=== PATIENT | female | born 1955 | race African-American/Black ===

== ENCOUNTER 2017-08-15 08:01 | Day surgery (SDC) | payer BC ==
[~2017-08-15 08:01] MED LIST: PROPOFOL INJ 200 MG/20 ML VIAL IV ONE
[2017-08-15 09:19] VITALS: BP 145/81
--- NOTE | 2017-08-15 14:38 | Operative Report ---
Operative Report DATE OF SURGERY: 08/15/17 Operative Report: The risks, benefits and alternatives of the procedure including risks of bleeding, perforation requiring surgery are explained to the patient in detail and informed consent is obtained the patient is taken back to the endoscopy unit and placed in a left lateral decubital position. Timeout was called. Propofol medications administered. A rectal examination is done which did not reveal any masses, tears or fissures. An Olympus endoscope is inserted into the patient's rectum. The scope was then advanced over the way to the cecum. The cecum was identified by the usual anatomical landmarks including the ileocecal valve as well as the appendiceal office. Prep is good. Photo documentation was obtained. The scope was then sequentially pulled back via the various segments of the colon including the ascending colon, hepatic flexure, transverse colon, splenic flexure, descending colon and finally into the rectosigmoid portions of the colon. Retroflexion maneuver is performed. PREOPERATIVE DIAGNOSIS: Personal history of colon polyp POSTOPERATIVE DIAGNOSIS: Colon polyp status post removal with snare polypectomy. Internal hemorrhoid OPERATION: Colonoscopy with snare polypectomy SURGEON: GONZÁLEZ BARRIENTOS ANESTHESIA: LMAC TISSUE REMOVED OR ALTERED: As noted above. COMPLICATIONS: None. ESTIMATED BLOOD LOSS: None. INTRAOPERATIVE FINDINGS: As noted above. PROCEDURE: Patient tolerated the procedure well. No immediate postprocedure complications are noted. Patient discharged in good condition. Discharge date 08/15/2017. Discharge diet: Regular. Discharge activity: Regular. 2-3 week follow-up to discuss findings. Patient is instructed to call the office and proceed to the emergency room should he be any further problems or questions. 5 year surveillance colonoscopy. We will await the pathology.
== END 2017-08-15 09:14 | disposition home or self-care (01) ==
LOC: END 08:01
PROVIDERS: ATTEND Internal Medicine Gastroenterology
DX: Z12.11 Encounter for screening for malignant neoplasm of colon (principal); D12.0 Benign neoplasm of cecum; K64.8 Other hemorrhoids; I10 Essential (primary) hypertension; Z86.010 Personal history of colon polyps; Z79.899 Other long term (current) drug therapy; Z79.82 Long term (current) use of aspirin; Z79.1 Long term (current) use of non-steroidal anti-inflammatories (NSAID); Z79.51 Long term (current) use of inhaled steroids
CPT/HCPCS: 45385; 811; 88305; J2704